=== PATIENT | female | born 1965 | race Caucasian/White ===

== ENCOUNTER → 2020-10-08 10:32 | Outpatient (BNVA) | payer OTHER, SELFPAY | PROVIDERS: Family Provider Family Medicine; PCP Family Medicine; Visit Provider Family Medicine | DX: E03.8 Other specified hypothyroidism (principal); I10 Essential (primary) hypertension; Z00.00 Encounter for general adult medical examination without abnormal findings; E66.01 Morbid (severe) obesity due to excess calories; Z68.43 Body mass index [BMI] 50.0-59.9, adult | CPT/HCPCS: 80053; 84443; 85025 ==

== ENCOUNTER 2022-03-24 11:59 | Outpatient (CLI) | payer OTHER, SELFPAY ==
--- NOTE | 2022-03-24 12:10 | MM_ITS ---
WS: [id number] SCREENING DIGITAL BREAST TOMOSYNTHESIS MAMMOGRAM WITH CAD HISTORY: SCREENING COMPARISON: 07/10/2019, 07/24/2017 Bilateral CC and MLO with tomosynthesis and synthetic mammography submitted. Computer aided detection analyzed. Breast composition: There are scattered areas of fibroglandular density. Asymmetry in the central RIG HT breast just posterior to the nipple has been present for several years. There is a new 6 mm nodule in the anterior LEFT breast. This nodule is just medial to the nipple line and above the nipple. Ashtyn se to the 9-10 o'clock axis. Not present on the prior studies. MM/[place] [id number] IMPRESSION: BI-RADS: 0-Incomplete: Need additional imaging evaluation FOLLOW UP: Need Additional Imaging LEFT breast: Spot compression views (CC and MLO). True ML. Ultrasound to follow if abnormality persists.
== END 2022-03-24 12:00 | disposition home or self-care (01) ==
LOC: RAD 12:02
PROVIDERS: PCP Family Medicine; Visit Provider Family Medicine
DX: Z12.31 Encounter for screening mammogram for malignant neoplasm of breast (principal)
CPT/HCPCS: 77063; 77067

== ENCOUNTER 2022-05-18 13:10 | Outpatient (CLI) | payer OTHER, SELFPAY ==
--- NOTE | 2022-05-18 13:21 | US_ITS ---
WS: [id number] Left breast ultrasound, 05/18/2022 Clinical Data: R92.8 - Other abnormal and inconclusive findings on diagn... Comparison: Mammogram, 05/18/2022 Findings: The left breast was imaged in the upper inner quadrant. At 2 cm from the nipple at 10:00 there was a small simple cyst measuring 0.35 x 0.48 x 0.57 cm. No other cysts were seen. No nodules, masses or co mplex cysts were seen. US/US breast LT limited* [id number] Impression: 1. Small cyst in upper inner quadrant of left breast 10:00 position 2 cm from t he nipple. 2. Recommend annual screening mammograms. BIRADS: 2-Benign FOLLOW UP: 1 Year Follow-up
--- NOTE | 2022-05-18 13:21 | MM_ITS ---
WS: [id number] Left breast diagnostic 3D tomosynthesis digital mammogram, 05/18/2022 Clinical Data: R92.8 - Other abnormal and inconclusive findings on diagn... Comparison: 03/24/2022, 07/10/2019, 07/24/2017, 03/11/2013, 11/15/2010, 11/08/2006. Findings: The left breast was imaged with CC spot, mediolateral oblique spot, and ML view. The nodule noted on the prior study is not imaged on the current examination. There were no definite nodules. No spiculat ed masses or clustered calcifications were seen. There are no secondary signs of carcinoma. MM/[place] [id number] Impression: 1. Negative additional views of left breast. 2. Left breast ultrasound will be performed. BIRADS: 2-Benign FOLLOW UP: See Report The CAD motor checker was used.
== END 2022-05-18 13:11 | disposition home or self-care (01) ==
PROVIDERS: PCP Family Medicine; Visit Provider Family Medicine
DX: R92.8 Other abnormal and inconclusive findings on diagnostic imaging of breast (principal)
CPT/HCPCS: 76642; 77061

== ENCOUNTER → 2022-07-27 13:10 | Outpatient (BNVA) | payer OTHER, SELFPAY | PROVIDERS: PCP Family Medicine; Visit Provider Family Medicine | DX: I10 Essential (primary) hypertension (principal); E66.01 Morbid (severe) obesity due to excess calories; Z68.43 Body mass index [BMI] 50.0-59.9, adult; Z00.00 Encounter for general adult medical examination without abnormal findings; J01.00 Acute maxillary sinusitis, unspecified | CPT/HCPCS: 80053; 84443; 85025 ==

== ENCOUNTER → 2024-02-12 10:15 | Outpatient (BNVA) | payer OTHER, SELFPAY | PROVIDERS: PCP Family Medicine; Visit Provider Family Medicine | DX: I10 Essential (primary) hypertension (principal); Z00.00 Encounter for general adult medical examination without abnormal findings; I87.2 Venous insufficiency (chronic) (peripheral) | CPT/HCPCS: 80053; 85025 ==

== ENCOUNTER 2024-09-18 12:57 | Outpatient (CLI) | payer OTHER, SELFPAY ==
--- NOTE | 2024-09-18 13:03 | MM_ITS ---
WS: [id number] Bilateral screening 3D tomosynthesis digital mammogram, 09/18/2024 1:04 PM Clinical Data: SCREENING Comparison: 05/18/2022, 03/24/2022, 07/10/2019, 07/24/2017, 03/11/2013, 11/15/2010. Findings: No spiculated masses or clustered calcifications are seen. There are no secondary signs of carcinoma . MM/MM scr BI tomosynthesis [id number] Impression: Negative bilateral mammogram unchanged. Recommend annual screening mammograms. BIRADS: 1 - Negative. FOLLOW UP: 1 Year Follow-up DENSITY: The breasts are almost entirely fatty. The CAD billing checker was used
== END 2024-09-18 12:58 | disposition home or self-care (01) ==
LOC: RAD 12:58
PROVIDERS: PCP Family Medicine; Visit Provider Family Medicine
DX: Z12.31 Encounter for screening mammogram for malignant neoplasm of breast (principal)
CPT/HCPCS: 77063; 77067

== ENCOUNTER → 2025-04-07 11:38 | Outpatient (BNVA) | payer OTHER, SELFPAY | PROVIDERS: PCP Family Medicine; Visit Provider Family Medicine | DX: I10 Essential (primary) hypertension (principal) | CPT/HCPCS: 80053; 85025 ==